=== PATIENT | female | born 2000 | race Caucasian/White ===

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

== ENCOUNTER 2019-02-27 10:55 | Emergency (ER) | payer OTHER ==
[~2019-02-27] VITALS: Ht 177.8 cm; Wt 99.3 kg
[2019-02-27 11:35] VITALS: BP 121/76; Ht 177.8 cm; Wt 99.3 kg
== END 2019-02-27 14:20 | disposition home or self-care (01) ==
LOC: ED 10:55
DX: J03.91 Acute recurrent tonsillitis, unspecified (principal); J45.909 Unspecified asthma, uncomplicated
CPT/HCPCS: J0558; J7512